=== PATIENT | female | born 1955 | race Caucasian/White ===

== ENCOUNTER 2017-05-29 21:39 | Emergency (ER) | payer MEDICARE, OTHER ==
[~2017-05-29] VITALS: Ht 167.6 cm; Wt 117.0 kg
[~2017-05-29 21:39] MED LIST: CYCL-1 PO
[2017-05-29] MEDS ORDERED: ketorolac trometh inj. 60 MG/2 ML VIAL IM ONE (22:30)
[2017-05-29] MEDS ORDERED: diazepam 5mg tablet PO ONE (22:30)
[2017-05-29 22:49] VITALS: BP 110/44
[2017-05-29] MEDS ORDERED: IBUP-1985 PO (22:58)
[2017-05-29] MEDS ORDERED: METH-360 PO (22:58)
== END 2017-05-29 22:57 | disposition home or self-care (01) ==
LOC: ER 21:40
DX: G89.29 Other chronic pain (principal); M54.9 Dorsalgia, unspecified; M62.830 Muscle spasm of back; Z88.2 Allergy status to sulfonamides; Z79.899 Other long term (current) drug therapy
CPT/HCPCS: 96372; 99283; J1885

== ENCOUNTER 2017-07-15 18:13 | Emergency (ER) | payer MEDICARE, OTHER ==
[~2017-07-15] VITALS: Ht 167.6 cm; Wt 113.6 kg
[~2017-07-15 18:13] MED LIST changes: +IBUP-1985 PO; +METH-360 PO
[2017-07-15] MEDS ORDERED: metoprolol tartrate 50mg tablet PO ONE (18:25)
[2017-07-15] MEDS ORDERED: phenylephrine 1% (X-tra strg) 15ml nasal spray NS ONE (18:30)
[2017-07-15] MEDS ORDERED: LIDOcaine 4% (40 mg/ml) topical solution 50ml TP ONE (18:30)
[2017-07-15] MEDS ORDERED: normal saline 1000ML IV soln IVB ONE (19:10)
[2017-07-15] MEDS ORDERED: normal saline 1000ml 1,000 ML IV ONE (19:10)
[2017-07-15] MEDS ORDERED: ondansetron/PF 4mg/2ml inj IV ONE ×2 (19:10)
[2017-07-15 20:07] LABS: BASOPHILS % (AUTO) 0.4 % (0-1); EOSINOPHILS # (AUTO) 0.3 X10'3 (0-0.9); EOSINOPHILS % (AUTO) 2.8 % (0-6); HEMATOCRIT 40.7 % (35.0-45.0); HEMOGLOBIN 14.3 g/dl (12.0-16.0); LYMPHOCYTES # (AUTO) 3.3 X10'3 (1.1-4.8); LYMPHOCYTES % (AUTO) 33.8 % (21-51); MEAN CORPUSCULAR HEMOGLOBIN 30.9 PG (27.0-31.0); MEAN CORPUSCULAR HGB CONC 35.2 % (33.0-36.5); MEAN CORPUSCULAR VOLUME 87.7 FL (78-98); MEAN PLATELET VOLUME 9.7 FL (7.4-10.4); MONOCYTES # (AUTO) 0.5 X10'3 (0-0.9); MONOCYTES % (AUTO) 5.6 % (2-12); NEUTROPHILS # (AUTO) 5.6 X10'3 (1.8-7.7); NEUTROPHILS % (AUTO) 57.4 % (42-75); PLATELET COUNT 157 X10'3 (140-440); RED BLOOD COUNT 4.64 X10'6 (4.20-5.60); WHITE BLOOD COUNT 9.7 X10'3 (4.5-11.0)
[2017-07-15 20:18] LABS: PROTHROMBIN TIME 9.9 SECONDS (9.0-12.0)
[2017-07-15 20:22] LABS: ALANINE AMINOTRANSFERASE 22 U/L (12-78); ALBUMIN 3.6 G/DL (3.4-5.0); ALBUMIN/GLOBULIN RATIO 1.1 (1.1-1.5); ALKALINE PHOSPHATASE 84 IU/L (46-116); ANION GAP 9 (8-16); ASPARTATE AMINO TRANSFERASE 17 U/L (10-37); BILIRUBIN,TOTAL 0.5 MG/DL (0.1-1.0); BLOOD UREA NITROGEN 19 MG/DL (7-18); BUN/CREATININE RATIO 20.9 (6.6-38.0); CALCIUM 9.6 MG/DL (8.5-10.1); CHLORIDE 108 MMOL/L (99-107); CREATININE 0.91 MG/DL (0.40-0.90); GLUCOSE 118 MG/DL (70-104); POTASSIUM 3.9 MMOL/L (3.5-5.1); SODIUM 144 MMOL/L (135-145); TOTAL CARBON DIOXIDE 26.8 MMOL/L (24-32); TOTAL PROTEIN 6.8 G/DL (6.4-8.2); eGFR 63 ML/MIN
[2017-07-15] MEDS ORDERED: HYDROcodone/acetaminophen 5mg/325mg tablet PO ONE (21:15)
[2017-07-15] MEDS ORDERED: HYDR-3965 PO (21:15)
[2017-07-15 21:20] VITALS: BP 118/78
== END 2017-07-15 21:21 | disposition home or self-care (01) ==
LOC: ER 18:13
DX: R04.0 Epistaxis (principal); R55 Syncope and collapse; I10 Essential (primary) hypertension; G89.29 Other chronic pain; Z88.2 Allergy status to sulfonamides; Z79.899 Other long term (current) drug therapy
CPT/HCPCS: 30901; 36415; 80053; 85025; 85610; 93005; 96361; 96374; 99285; J2405; J7030

== ENCOUNTER 2018-10-05 21:14 | Emergency (ER) | payer MEDICARE ==
[~2018-10-05] VITALS: Ht 167.6 cm; Wt 118.8 kg
[2018-10-05] MEDS ORDERED: ketorolac trometh inj. 60 MG/2 ML VIAL IM ONE (21:35)
[2018-10-05] MEDS ORDERED: METH-360 PO (21:50)
[2018-10-05 21:57] VITALS: BP 149/76
== END 2018-10-05 23:14 | disposition home or self-care (01) ==
LOC: ER 21:14
DX: M25.511 Pain in right shoulder (principal); G89.29 Other chronic pain; M54.5 Low back pain; M62.838 Other muscle spasm; I10 Essential (primary) hypertension; Z88.2 Allergy status to sulfonamides; Z79.899 Other long term (current) drug therapy
CPT/HCPCS: 96372; 99283; J1885

== ENCOUNTER 2021-12-13 06:02 | Day surgery (SDC) | payer MEDICARE, MEDICAID ==
[2021-12-12 08:28] LABS: BASOPHILS % (AUTO) 0.6 % (0-1); EOSINOPHILS # (AUTO) 0.2 X10'3 (0-0.9); EOSINOPHILS % (AUTO) 2.6 % (0-6); HEMOGLOBIN 12.7 g/dl (12.0-16.0); LYMPHOCYTES # (AUTO) 2.1 X10'3 (1.1-4.8); LYMPHOCYTES % (AUTO) 29.6 % (21-51); MEAN CORPUSCULAR HEMOGLOBIN 30.1 PG (27.0-31.0); MEAN CORPUSCULAR HGB CONC 33.5 g/dL (33.0-36.5); MEAN CORPUSCULAR VOLUME 89.9 FL (78-98); MEAN PLATELET VOLUME 8.7 FL (7.4-10.4); MONOCYTES # (AUTO) 0.5 X10'3 (0-0.9); MONOCYTES % (AUTO) 7.2 % (2-12); NEUTROPHILS # (AUTO) 4.3 X10'3 (1.8-7.7); PLATELET COUNT 260 X10'3 (140-440); RED BLOOD COUNT 4.23 X10'6 (4.20-5.60); RED CELL DISTRIBUTION WIDTH 14.4 % (11.5-14.5); WHITE BLOOD COUNT 7.1 X10'3 (4.5-11.0)
[2021-12-12 08:35] LABS: ALBUMIN 3.3 G/DL (3.4-5.0); ANION GAP 8 (8-16); BLOOD UREA NITROGEN 24 MG/DL (7-18); BUN/CREATININE RATIO 25.5 (6.6-38.0); CHLORIDE 106 MMOL/L (99-107); CREATININE 0.94 MG/DL (0.40-0.90); GLUCOSE 142 MG/DL (70-104); POTASSIUM 4.5 MMOL/L (3.5-5.1); SODIUM 139 MMOL/L (135-145); eGFR 60 ML/MIN
[2021-12-12 15:57] LABS: APTT 25 SECONDS (22-32)
[2021-12-13] VITALS (12 sets, daily range): BP systolic 102–133; BP diastolic 37–86
[~2021-12-13] VITALS: Ht 167.6 cm; Wt 112.2 kg
[2021-12-13] MEDS ORDERED: LORazepam 0.5 MG tablet PO PRN (06:50)
[2021-12-13] MEDS ORDERED: diphenhydrAMINE 25mg capsule PO PRN (06:50)
[2021-12-13] MEDS ORDERED: normal saline 1,000 ML IV SCH (06:50)
[2021-12-13] MEDS ORDERED: LIDOcaine/PRILOcaine 5gm cream TP ONE (06:55)
[2021-12-13] MEDS ORDERED: LIDOcaine 1% (10mg/ml) 2ml vial ONE (07:27)
[2021-12-13] MEDS ORDERED: fentaNYL/PF 50MCG/1 ML 2ML syringe ONE (07:27)
[2021-12-13] MEDS ORDERED: nitroGLYCERIN-Tridil 50MG/D5W 250 ML IV ONE (07:27)
[2021-12-13] MEDS ORDERED: verapamil 2.5 mg/ml inj IV ONE (07:27)
[2021-12-13] MEDS ORDERED: midazolam 1 mg/ML 2ml injection ONE (07:27)
[2021-12-13] MEDS ORDERED: heparin 1,000unit/ml 10ml vial 10 ML ONE (07:27)
[2021-12-13] MEDS ORDERED: iohexol 350MG/ML 100ml bottle IV ONE (07:29)
[2021-12-13] MEDS ORDERED: LEVO150T8 PO (07:51)
[2021-12-13] MEDS ORDERED: KRIL1CAP PO (07:51)
[2021-12-13] MEDS ORDERED: CYAN100T39 SL (07:51)
[2021-12-13] MEDS ORDERED: LISI1TAB51 PO (07:51)
[2021-12-13] MEDS ORDERED: CHOL500050 PO (07:51)
[2021-12-13] MEDS ORDERED: ALLO100T25 PO (07:51)
[2021-12-13] MEDS ORDERED: VITA400T10 PO (07:51)
[2021-12-13] MEDS ORDERED: MAGN400C PO (07:51)
[2021-12-13] MEDS ORDERED: VITAMIN PO (07:51)
[2021-12-13] MEDS ORDERED: MULT-1085 PO (07:51)
== END 2021-12-13 13:50 | disposition home or self-care (01) ==
LOC: SSTAY O 06:02
PROVIDERS: ATTEND Internal Medicine Cardiovascular Disease
DX: R94.39 Abnormal result of other cardiovascular function study (principal); I25.10 Atherosclerotic heart disease of native coronary artery without angina pectoris; E78.5 Hyperlipidemia, unspecified; I10 Essential (primary) hypertension; E66.9 Obesity, unspecified; Z79.01 Long term (current) use of anticoagulants; Z79.899 Other long term (current) drug therapy; F17.210 Nicotine dependence, cigarettes, uncomplicated
CPT/HCPCS: 36415; 76937; 80048; 85025; 85610; 85730; 93005; 93458; 99152; 99153; C1769; C1894; J1644; J2250; J3010; J3490; J7030; Q0163; Q9967; A4620; A5120; A6258; A6402

== ENCOUNTER 2023-02-19 07:43 | Emergency (ER) | payer MEDICARE, MEDICAID ==
[~2023-02-19] VITALS: Ht 167.6 cm; Wt 130.0 kg
[~2023-02-19 07:43] MED LIST changes: +ALLO100T25 PO; +CHOL500050 PO; +CIDE600C PO; +CYAN100T39 SL; -CYCL-1 PO; +IBUP-1984 PO; -IBUP-1985 PO; +KRIL1CAP PO; +LEVO150T8 PO; +LISI1TAB51 PO; +MAGN400C PO; -METH-360 PO; +MULT-1085 PO; +VITA1TAB20 PO; +VITA400T10 PO; +VITA800012 PO
[2023-02-19 07:49] VITALS: TEMP 97.5
[2023-02-19] MEDS ORDERED: ringers solution, lacted 1,000 ML IV ONE (08:25)
[2023-02-19] MEDS ORDERED: ondansetron/PF 4mg/2ml inj IV ONE (08:25)
[2023-02-19] MEDS ORDERED: morphine 4 MG/ML inj SYRINge IV ONE (08:25)
[2023-02-19 08:27] LABS: BASOPHILS % (AUTO) 0.7 % (0-1); EOSINOPHILS # (AUTO) 0.2 X10'3 (0-0.9); EOSINOPHILS % (AUTO) 2.6 % (0-6); HEMATOCRIT 41.8 % (35.0-45.0); LYMPHOCYTES % (AUTO) 31.5 % (21-51); MEAN CORPUSCULAR HEMOGLOBIN 31.7 PG (27.0-31.0); MEAN CORPUSCULAR HGB CONC 33.5 g/dL (33.0-36.5); MEAN CORPUSCULAR VOLUME 94.7 FL (78-98); MEAN PLATELET VOLUME 9.4 FL (7.4-10.4); MONOCYTES # (AUTO) 0.4 X10'3 (0-0.9); MONOCYTES % (AUTO) 6.4 % (2-12); NEUTROPHILS # (AUTO) 3.8 X10'3 (1.8-7.7); NEUTROPHILS % (AUTO) 58.8 % (42-75); PLATELET COUNT 204 X10'3 (140-440); RED BLOOD COUNT 4.41 X10'6 (4.20-5.60); RED CELL DISTRIBUTION WIDTH 14.1 % (11.5-14.5); WHITE BLOOD COUNT 6.4 X10'3 (4.5-11.0)
[2023-02-19] MEDS ORDERED: iohexol 300mg/ml 100ml inj. ONE (08:37)
[2023-02-19 08:52] VITALS: BP 125/73; PULSE 76; RESP 18; O2SAT 95
[2023-02-19 09:07] LABS: ALANINE AMINOTRANSFERASE 39 U/L (12-78); ALBUMIN/GLOBULIN RATIO 1.1 (1.1-1.5); ALKALINE PHOSPHATASE 95 IU/L (46-116); ANION GAP 9 (8-16); ASPARTATE AMINO TRANSFERASE 36 U/L (10-37); BILIRUBIN,TOTAL 0.7 MG/DL (0.1-1.0); BLOOD UREA NITROGEN 20 MG/DL (7-18); BUN/CREATININE RATIO 21.1 (10.0-20.0); CALCIUM 10.1 MG/DL (8.5-10.1); CHLORIDE 102 MMOL/L (99-107); CREATININE 0.95 MG/DL (0.40-0.90); GLUCOSE 139 MG/DL (70-104); POTASSIUM 4.5 MMOL/L (3.5-5.1); SODIUM 135 MMOL/L (135-145); TOTAL CARBON DIOXIDE 23.6 MMOL/L (24-32); TOTAL PROTEIN 7.5 G/DL (6.4-8.2); eCRCL 55 ML/MIN; eGFR 59 ML/MIN
[2023-02-19 10:43] LABS: BILIRUBIN,URINE NEGATIVE (Neg); CLARITY,URINE SLIGHTLY CLOUDY (Clear); COLOR,URINE YELLOW (Yellow); GLUCOSE, URINE NEGATIVE (Neg); KETONES,URINE NEGATIVE (Neg); LEUKOCYTE ESTERASE ,URINE NEGATIVE (Neg); NITRITES, URINE NEGATIVE (Neg); OCCULT BLOOD,URINE NEGATIVE (Neg); PROTEIN,URINE TRACE mg/dl (Neg); UROBILINOGEN,URINE 0.2 E.U/dL (0.2-1.0)
[2023-02-19 10:47] LABS: URINE HCG NEGATIVE (NEG)
[2023-02-19 10:48] LABS: UA COLLECTION TYPE CLN CATCH MIDSTREAM
[2023-02-19 10:52] LABS: SQUAMOUS EPITHELIAL CELL,UR MANY /LPF (FEW)
[2023-02-19 10:53] LABS: TRANSITIONAL EPI CELLS,URINE FEW /HPF
[2023-02-19 10:54] LABS: BACTERIA,URINE 1+ /HPF (Neg); WBC,URINE 0-4 /HPF (0-4)
== END 2023-02-19 10:56 | disposition home or self-care (01) ==
LOC: ER 07:44
DX: K42.9 Umbilical hernia without obstruction or gangrene (principal); I10 Essential (primary) hypertension; G89.29 Other chronic pain; M54.9 Dorsalgia, unspecified; Z88.2 Allergy status to sulfonamides; Z88.8 Allergy status to other drugs, medicaments and biological substances; Z79.899 Other long term (current) drug therapy
CPT/HCPCS: 36415; 74177; 80053; 81001; 81025; 82150; 83690; 85025; 96361; 96374; 96375; 99285; J2270; J2405; J3490; J7120; Q9967

== ENCOUNTER 2023-09-15 09:53 | Emergency (ER) | payer MEDICARE, MEDICAID ==
[~2023-09-15] VITALS: Ht 167.6 cm; Wt 120.9 kg
[~2023-09-15 09:53] MED LIST changes: +VITA-290 PO; -VITA1TAB20 PO
[2023-09-15 10:16] VITALS: BP 130/70; PULSE 73; TEMP 97.8; O2SAT 97
[2023-09-15] MEDS ORDERED: CEPH-585 PO (10:44)
[2023-09-15] MEDS ORDERED: CLIN-145 PO (10:44)
[2023-09-15 10:58] VITALS: RESP 14
== END 2023-09-15 11:08 | disposition home or self-care (01) ==
LOC: ER 09:54
DX: L03.316 Cellulitis of umbilicus (principal); I10 Essential (primary) hypertension; G89.29 Other chronic pain; M54.9 Dorsalgia, unspecified; Z88.2 Allergy status to sulfonamides; Z88.8 Allergy status to other drugs, medicaments and biological substances
CPT/HCPCS: 99283

== ENCOUNTER 2024-02-03 04:47 | Emergency (ER) | payer MEDICARE, MEDICAID ==
[~2024-02-03] VITALS: Ht 167.6 cm; Wt 118.2 kg
[~2024-02-03 04:47] MED LIST changes: +CEPH-585 PO
[2024-02-03] MEDS: LORazepam 1 MG tablet PO ONE (08:31)
[2024-02-03] MEDS: ketorolac trometh 30MG/ML vial 30 MG/ML VIAL IM ONE (08:33)
[2024-02-03 08:52] LABS: BILIRUBIN,URINE NEGATIVE (Neg); CLARITY,URINE CLEAR (Clear); COLOR,URINE YELLOW (Yellow); GLUCOSE, URINE NEGATIVE (Neg); KETONES,URINE NEGATIVE (Neg); LEUKOCYTE ESTERASE ,URINE NEGATIVE (Neg); NITRITES, URINE NEGATIVE (Neg); OCCULT BLOOD,URINE NEGATIVE (Neg); PROTEIN,URINE NEGATIVE (Neg); UROBILINOGEN,URINE 0.2 E.U/dL (0.2-1.0)
[2024-02-03 09:01] LABS: UA COLLECTION TYPE OTHER
[2024-02-03] MEDS ORDERED: IBUP-1985 PO (11:11)
[2024-02-03] MEDS ORDERED: CYCL-1 PO (11:11)
[2024-02-03 11:21] VITALS: BP 129/69; PULSE 69; RESP 15; TEMP 97.9; O2SAT 97
== END 2024-02-03 11:21 | disposition home or self-care (01) ==
LOC: ER 04:48
DX: M54.50 Low back pain, unspecified (principal); I10 Essential (primary) hypertension; Z88.2 Allergy status to sulfonamides; Z79.2 Long term (current) use of antibiotics; Z79.899 Other long term (current) drug therapy; Z79.1 Long term (current) use of non-steroidal anti-inflammatories (NSAID)
CPT/HCPCS: 81003; 96372; 99285; J1885